=== PATIENT | female | born 1970 | race Caucasian/White ===

== ENCOUNTER 2021-11-26 17:07 | Emergency (ER) | payer OTHER, SELFPAY ==
--- NOTE | ~2021-11-26 | XR_ITS ---
XR chest 2V DATE: 11/26/2021 17:31 INDICATION: Congestion, shortness of breath for 4 days TECHNIQUE: 2 views COMPARISON: None FINDINGS: Normal heart size. No hilar or mediastinal enlargement. No pulmonary infiltrate or consolid ation, pleural effusion or pulmonary vascular congestion or pneumothorax. Surgical clips overlie the upper abdomen on the lateral view, likely due to cholecystectomy. IMPRESSION: No active cardiopulmonary disease Reviewed, dictated and finalized at location A.
[2021-11-26 17:15] VITALS: BP 159/96; PULSE 77; RESP 20; TEMP 37; O2SAT 96
--- NOTE | 2021-11-26 17:19 | ED.URI ---
HPI - URI/Sore Throat General Chief Complaint: Upper Respiratory Infection Stated Complaint: cough and congestion Time Seen by Provider: 11/26/21 17:19 Source: patient and RN notes reviewed History of Present Illness HPI Narrative: Patient is a 51-year-old female presents the urgent care with complaints of cough, congestion and subjective fever. Patient denies of any nausea, vomiting or chest pain. States that today she woke up with intermittent shortness of breath. States that her cough is productive and she has had some wheezing. Patient states that she normally does not smoke but has been going out with friends and smoking cigarettes in the last couple weeks. Patient states that she does have frequent bronchitis. Denies of any history of lung disease, pneumonia. Patient states symptoms started on Tuesday and she has had subjective fever. Patient has been using Mucinex, Cavalier DM, and Coricidin. Patient did have a rapid negative Covid test today at home. States that she had a telehealth visit with her physician but the [id number] medication has not been working . No other acute complaints. No acute distress noted. Patient aware of the plan of care. Some parts of this dictation were generated by voice recognition software and may contain typographical and/or grammatical inaccuracies. Related Data Home Medications Medication Instructions Recorded Confirmed irbesartan 300 mg PO DAILY 11/26/21 11/26/21 metformin 500 mg PO BID 11/26/21 11/26/21 metoprolol succinate 200 mg PO DAILY 11/26/21 11/26/21 pantoprazole 40 mg PO QAM 11/26/21 11/26/21 pravastatin 20 mg PO DAILY 11/26/21 11/26/21 triamterene-hydrochlorothiazid 1 tablet PO QAM 11/26/21 11/26/21 Allergies Allergy/AdvReac Type Severity Reaction Status Date / Time No Known Allergies Allergy Verified 11/26/21 17:37 Review of Systems Review of Systems: CONSTITUTIONAL: Reports of subjective fevers EYES: Denies visual changes, redness, or discharge. ENT: Denies rhinorrhea, sore throat, or otalgia. Reports of sinus congestion and postnasal drainage CARDIOVASCULAR: Denies chest pain, palpitations, or edema. RESPIRATORY: Reports a productive cough with intermittent dyspnea GASTROINTESTINAL: Denies abdominal pain, nausea, vomiting, or diarrhea. GENITOURINARY: Denies dysuria or hematuria. SKIN: Denies rash or itching. MUSCULOSKELETAL: Denies back pain, joint pain, or myalgia. NEUROLOGIC: Denies headache, numbness, or weakness. All other systems reviewed are negative, except as documented in HPI. PMFSH Comments At the time of my signature, I reviewed and agree with the nursing past medical, surgical, social, and family history. There is no relevant family history pertinent to the patient complaint. Exam Narrative: GENERAL: This is a well-nourished, well-developed patient, in no apparent distress. HEAD: normocephalic, atraumatic. EYES: PERRL. Sclera clear/white. Vision is grossly intact. EARS: External ears normal, auditory canals clear and without drainage, TMs normal without perforation. Hearing grossly intact. NOSE: External nose normal with no obvious nasal discharge, nares without redness, no rhinorrhea. THROAT: Mucous membranes moist, posterior pharynx clear. Moderate postnasal drainage NECK: Neck supple CARDIOVASCULAR: Regular rate and rhythm RESPIRATORY: Coarse expiratory wheezes throughout. SKIN: warm, intact with no suspicious lesions or rash, good texture and turgor. NEURO: awake, alert, and oriented to person, place and time. There were no obvious focal neurologic abnormalities. EXTREMITIES: No clubbing, cyanosis, or edema. Course Course Level of Care: Express Care Visit Vital Signs Vital signs: Vital Signs Temperature 98.6 F 11/26/21 17:15 Pulse Rate 77 11/26/21 17:15 Respiratory Rate 20 11/26/21 17:15 Blood Pressure 159/96 H 11/26/21 17:15 Pulse Oximetry 96 11/26/21 17:15 Temperature 98.6 F 11/26/21 17:15 Pulse Rate 77
== END 2021-11-26 18:23 | disposition home or self-care (01) ==
PROVIDERS: Emergency Provider Nurse Practitioner Family; PCP Internal Medicine
DX: J40 Bronchitis, not specified as acute or chronic (principal); E78.00 Pure hypercholesterolemia, unspecified; I10 Essential (primary) hypertension; E11.9 Type 2 diabetes mellitus without complications
CPT/HCPCS: 71046; 99213; G0463